=== PATIENT | female | born 1990 ===

== ENCOUNTER 2018-02-24 18:05 | Emergency (ER) | payer OTHER ==
[~2018-02-24] VITALS: Ht 162.6 cm; Wt 61.2 kg
== END 2018-02-24 20:54 | disposition home or self-care (01) ==
LOC: ER 18:05
DX: B34.9 Viral infection, unspecified (principal)

== ENCOUNTER 2018-05-08 14:22 | Emergency (ER) | payer OTHER ==
[~2018-05-08] VITALS: Ht 165.1 cm; Wt 61.2 kg
== END 2018-05-08 20:52 | disposition home or self-care (01) ==
LOC: ER 14:22
DX: J06.9 Acute upper respiratory infection, unspecified (principal)

== ENCOUNTER 2018-10-18 14:04 | Emergency (ER) | payer OTHER ==
[~2018-10-18] VITALS: Ht 165.1 cm; Wt 61.2 kg
== END 2018-10-18 18:11 | disposition home or self-care (01) ==
LOC: ER 14:04
DX: B34.9 Viral infection, unspecified (principal)